=== PATIENT | female | born 1985 | race Caucasian/White ===

== ENCOUNTER → 2017-05-01 | Outpatient (CLI) | payer OTHER | END | disposition home or self-care (01) | LOC: EDSEX 09:42 → LAB.O 09:42 | DX: N91.2 Amenorrhea, unspecified (principal) ==

== ENCOUNTER → 2017-05-14 | Outpatient (CLI) | payer OTHER | END | disposition home or self-care (01) | LOC: LAB.O 08:34 | DX: N91.2 Amenorrhea, unspecified (principal) ==

== ENCOUNTER 2017-07-05 14:10 | Emergency (ER) | payer OTHER ==
--- NOTE | 2017-07-05 14:23 | ED.PDOC ---
History of Present Illness - General Chief Complaint: Respiratory Problem Stated Complaint: cough Time Seen by Provider: 07/05/17 14:22 Source: patient, EMS notes reviewed - History of Present Illness Initial Comments: Tony Ross 32 y/o female with history of seasonal asthma stated that she had been having SOB,wheezing ,cough and hoarseness the last 5 days presently 13 weeks ega.Had used most of her b-agonist mdi Timing/Duration: 1 week Severity: moderate Improving Factors: nothing Worsening Factors: nothing Associated Symptoms: other - see hpi Allergies/Adverse Reactions: Allergies NO KNOWN ALLERGY Allergy (Verified 07/05/17 14:34) Home Medications: Ambulatory Orders Albuterol Inhaler [Ventolin Hfa Inhaler] 2 puff IN Q4HR PRN #1 inh 07/05/17 Albuterol Inhaler [Ventolin Hfa Inhaler] 108 mcg IN PRN 07/05/17 Fluticasone Propionate Inhaler [Flovent 110 MCG Inhaler] 110 mcg INH BID #1 inh 07/05/17 Review of Systems - Review of Systems Constitutional: States: no symptoms reported EENTM: States: nose congestion Respiratory: States: see HPI Cardiology: States: no symptoms reported Gastrointestinal/Abdominal: States: no symptoms reported Genitourinary: States: no symptoms reported Musculoskeletal: States: no symptoms reported Skin: States: no symptoms reported Past Medical History (General) - Patient Medical History Hx Seizures: No Hx Stroke: No Hx Dementia: No Hx Asthma: Yes Hx of COPD: No Hx Cardiac Disorders: No Hx Congestive Heart Failure: No Hx Pacemaker: No Hx Hypertension: No Hx Thyroid Disease: No Hx Diabetes: No Hx Gastroesophageal Reflux: No Hx Renal Disease: No Hx Cancer: No Hx of HIV: No Hx Hepatitis C: No Hx MRSA: No Surgical History: other - c sections - Vaccination History Hx Tetanus, Diphtheria Vaccination: Yes Hx Influenza Vaccination: No Hx Pneumococcal Vaccination: No - Social History Hx Tobacco Use: No Hx Chewing Tobacco Use: No Hx Alcohol Use: No Hx Substance Use: No Hx Substance Use Treatment: No Hx Depression: No Hx Physical Abuse: No Hx Emotional Abuse: No Hx Suspected Abuse: No - Female History Hx Last Menstrual Period: 03/25/17 Patient : Yes Expected Date of Delivery:: 01/08/18 Hx Gestational Age: 13 - weeks Family Medical History - Family History Father Hx Family Asthma: Yes Hx Family Hypertension: Yes Hx Family Diabetes: Yes Mother Hx Family Hypertension: Yes Hx Family;Other: thyroid disease; arthritis Physical Exam - Physical Exam General Appearance: Alert, Anxious, No apparent distress Eye Exam: bilateral normal Ears, Nose, Throat: hearing grossly normal, normal ENT inspection, normal pharynx Neck: non-tender, supple Respiratory: no accessory muscle use, respiratory distress, wheezing Cardiovascular/Chest: normal peripheral pulses, regular rate, rhythm, no murmur Peripheral Pulses: radial,right: 2+, radial,left: 2+ Gastrointestinal/Abdominal: non tender, soft, other - gravid uterus Back Exam: normal inspection, no CVA tenderness, no vertebral tenderness Extremity: no pedal edema, no calf tenderness Departure - Departure Clinical Impression: Asthma Qualifiers: Asthma severity: unspecified severity Asthma complication type: uncomplicated Qualified Code(s): J45.909 - Unspecified asthma, uncomplicated Time of Disposition: 15:19 Disposition: Discharge to Home or Self Care Condition: Good Departure Forms: ED Discharge - Pt. Copy, Patient Portal Self Enrollment Instructions: DI for Asthma -- Adult Prescriptions: Albuterol Inhaler [Ventolin Hfa Inhaler] 2 puff IN Q4HR PRN #1 inh PRN Reason: Wheezing Fluticasone Propionate Inhaler [Flovent 110 MCG Inhaler] 110 mcg INH BID #1 inh Home Medications: Ambulatory Orders Albuterol Inhaler [Ventolin Hfa Inhaler] 2 puff IN Q4HR PRN #1 inh 07/05/17 Albuterol Inhaler [Ventolin Hfa Inhaler] 108 mcg IN PRN 07/05/17 Fluticasone Propionate Inhaler [Flovent 110 MCG Inhaler] 110 mcg INH BID #1 inh 07/05/17 Additional Instructions: Follow up with OB 07/06/2017 call for appointment if needed;May use (OTC) Afrin nose spray 2 each nostril am /pm 3 days on 3 days off;Rhinocort 2 sprays each nostril at bedtime;Benadryl capsule -one at bedtime and Mucinex dm 1 tablet am/ pm for coughs
[2017-07-05] MEDS ORDERED: ALBUTEROL SULFATE 2.5 MG/3 ML VIAL NEB ONE (14:30)
[2017-07-05] MEDS ORDERED: IPRATROPIUM/ALBUTEROL 3 ML VIAL NEB ONE ×2 (14:30→14:40)
[2017-07-05] MEDS ORDERED: LEVALBUTEROL NEBS 1.25 MG/3 ML VIAL NEB ONE (15:06)
[2017-07-05 15:46] VITALS: BP 109/65; TEMP 100; O2SAT 97
== END 2017-07-05 15:50 | disposition home or self-care (01) ==
LOC: ER 14:10
DX: O99.511 Diseases of the respiratory system complicating pregnancy, first trimester (principal); J45.909 Unspecified asthma, uncomplicated; Z3A.13 13 weeks gestation of pregnancy; Z79.899 Other long term (current) drug therapy
CPT/HCPCS: 94640; J7620

== ENCOUNTER → 2019-09-15 | Outpatient (CLI) | payer BC, OTHER | LOC: GMAE 14:31 | PROVIDERS: ATTEND Family Medicine | DX: R21 Rash and other nonspecific skin eruption (principal) ==

== ENCOUNTER → 2019-10-03 | Outpatient (CLI) | payer BC | LOC: RESP 09:25 | PROVIDERS: ATTEND Family Medicine | DX: R94.31 Abnormal electrocardiogram [ECG] [EKG] (principal) ==

== ENCOUNTER → 2019-10-25 | Outpatient (CLI) | payer BC | DX: R06.00 Dyspnea, unspecified (principal) ==

== ENCOUNTER → 2019-10-26 | Outpatient (CLI) | payer BC | DX: R91.8 Other nonspecific abnormal finding of lung field (principal) ==

== ENCOUNTER → 2019-10-28 | Outpatient (CLI) | payer BC | DX: D86.0 Sarcoidosis of lung (principal) ==

== ENCOUNTER → 2020-07-27 | Outpatient (CLI) | payer BC | LOC: LAB.O 09:07 | DX: R00.2 Palpitations (principal); E56.9 Vitamin deficiency, unspecified; E78.2 Mixed hyperlipidemia; R53.83 Other fatigue ==

== ENCOUNTER → 2020-07-31 | Outpatient (CLI) | payer BC | LOC: LAB.O 09:27 | DX: Z79.899 Other long term (current) drug therapy (principal); R73.9 Hyperglycemia, unspecified ==